=== PATIENT | female | born 1990 | race Caucasian/White ===

== ENCOUNTER 2018-11-06 12:40 | Outpatient (CLI) | payer OTHER ==
[~2018-11-06] VITALS: Ht 167.6 cm; Wt 113.9 kg
[2018-11-06 13:13] VITALS: BP 126/75; PULSE 80; RESP 18; Ht 167.6 cm; Wt 113.9 kg
[2018-11-06] MEDS ORDERED: LACTATED RINGER'S 1,000 ML IV SCH (13:14)
[2018-11-06] MEDS ORDERED: ALBU8.5H8 INH (13:15)
--- NOTE | 2018-11-06 16:33 | TRIAGE ---
OB Triage Datetime Report Generated by CPN: 11/06/2018 16:33 Datetime: 11/06/2018 16:21 Labor Evaluation Frequency: x1 Monitor Mode: External Duration (sec)2399: 60 Quality: Mild Pattern: Normal: <= 5 Contractions in 10 Minutes Resting Tone Blue: Relaxed Contraction Comments: uc with irritability Heart Rate FHR Baseline Rate: 135 Monitor Mode: External US Variability: Moderate 6-25 bpm Accelerations: 15X15 Decelerations: None Category: Category I Datetime: 11/06/2018 16:00 Labor Evaluation Frequency: x2 Monitor Mode: External Duration (sec)2399: 60-100 Quality: Mild Pattern: Normal: <= 5 Contractions in 10 Minutes Resting Tone Blue: Relaxed Contraction Comments: uc with irriabilty Heart Rate FHR Baseline Rate: 135 Monitor Mode: External US Variability: Moderate 6-25 bpm Accelerations: 15X15 Decelerations: None Category: Category I Pain Assessment Pain Presence: None/Denies Pain Type: N/A Datetime: 11/06/2018 15:01 Duration (sec)2399: 20-40 Quality: Mild Pattern: Normal: <= 5 Contractions in 10 Minutes Resting Tone Blue: Relaxed Heart Rate FHR Baseline Rate: 135 Variability: Moderate 6-25 bpm Accelerations: 15X15 Decelerations: None Category: Category I Pain Assessment Pain Presence: None/Denies Pain Type: N/A Datetime: 11/06/2018 13:59 Labor Evaluation Frequency: x2 Monitor Mode: External Duration (sec)2399: 60-70 Quality: Mild Pattern: Normal: <= 5 Contractions in 10 Minutes Resting Tone Blue: Relaxed Contraction Comments: uc with irritability Heart Rate FHR Baseline Rate: 135 Monitor Mode: External US Variability: Moderate 6-25 bpm Accelerations: 15X15 Decelerations: None Category: Category I Pain Assessment Pain Presence: None/Denies Pain Type: N/A Datetime: 11/06/2018 13:20 Assessment Type: Triage Maternal Assessment Level of Consciousness: Fully Conscious DTR's/Clonus: DTRs 2+; No Clonus Headache: Denies Blurred Vision: No Respiratory Effort: Unlabored; Regular Rhythm; Equal Expansion Breath Sounds, Left: Clear and Equal Breath Sounds, Right: Clear and Equal Nausea/Vomiting: Denies RUQ Epigastric Pain: Denies Lower Extremities Edema: None Degree: None Upper Extremities Edema: None Facial Edema: None Fall Risk Assessment History of Falling: (0) No Secondary Diagnosis: (0) No Ambulatory Aid: (0) Bedrest/Nurse Assist IV Therapy: (0) No Gait: (0) Normal/Bedrest/Immobile Mental Status: (0) Oriented to Own Ability Fall Score: 0 Fall Risk Score Definition: No Risk: No action required Datetime: 11/06/2018 13:19 Time of Arrival: 11/06/2018 12:45 EGA: 35.5 Arrived By: Ambulatory Arrived From: Other Unit in Hospital Chief Complaint: PT. to ob triage from nst for extended monitoring due to mild uc Movement: Present Contractions: Denies/Absent Patient Complaints: Other Initial Plan: r/o ptl
--- NOTE | 2018-11-16 07:27 | PN ---
Triage Information Date/Time late entry for service rendered on 11/06/18 Reason for visit: Uterine contractions Weeks of Gestation 35w5d /Para Additional information twin gestation Objective Heart Rate: 130's (from NST for extended monitoring for uc's) Heart Rate Comments CAT I Contractions: < 5 Minutes Apart Results/Medications Medications IV hydration and x2 terbutaline Disposition: Discharge Assessment/Plan A IUP 35w5d twin gestation no ptl P discharge home with routine labor instructions RTH prn STELLA CORONA MD Nov 16, 2018 07:27
== END 2018-11-06 16:40 | disposition home or self-care (01) ==
LOC: L-D 12:40 → OBT 12:40
PROVIDERS: ATTEND Specialist
DX: O62.9 Abnormality of forces of labor, unspecified (principal); Z3A.35 35 weeks gestation of pregnancy
CPT/HCPCS: 36415; 80307; 81003; 85025; 85610; 85730; 86592; 86850; 86900; 86901; 87340; 96360; 96361; J7120; Z7500; G0463

== ENCOUNTER 2018-11-18 01:45 | Inpatient (IN) | payer OTHER ==
[~2018-11-18] VITALS: Ht 170.2 cm; Wt 116.4 kg
[~2018-11-18 01:45] MED LIST: ALBU8.5H8 INH
[2018-11-18 02:24] VITALS: BP 128/77; PULSE 71; RESP 17; Ht 170.2 cm; Wt 116.4 kg
[2018-11-18] MEDS ORDERED: CARBOPROST 250 MCG INJ IM PRN ×2 (02:30→16:30)
[2018-11-18] MEDS ORDERED: CEFAZOLIN 2 GM/50 ML (PMX) 50 ML IVPB SCH (02:30)
[2018-11-18] MEDS ORDERED: OXYTOCIN 30 UNITS/LR 500 ML IV SCH ×2 (02:30→16:08)
[2018-11-18] MEDS ORDERED: MISOPROSTOL 200 MCG TAB PR PRN ×2 (02:30→16:30)
[2018-11-18] MEDS ORDERED: OXYTOCIN 30 UNITS/LR 500 ML IV PRN ×2 (02:30→16:30)
[2018-11-18] MEDS: LACTATED RINGER'S 1,000 ML IV SCH ×2 (02:43→10:24)
[2018-11-18] MEDS ORDERED: AMPICILLIN 2 GM/NS (PMX) 100 ML ONE (02:47)
--- NOTE | 2018-11-18 02:50 | HP ---
Date/Time of Note Date/Time of Note DATE: 11/18/18 TIME: 02:48 OB - History Hx of Present Chief Complaint: leakage of fluid Estimated Due Date: Dec 06, 2018 : 2 Para: 1 Spontaneous : 0 Therapeutic : 0 Care: Good Care Ultrasounds: Normal mid trimester US Obstetrical Complications: Other (twins) Medical Complications: None Past Family/Social History * Past Medical, Surgical, Family and Obstetric Histories reviewed from chart. OB Admission Exam Vital Signs Vital Signs Vital Signs Date Temp Pulse Resp B/P (MAP) Pulse Ox O2 O2 Flow FiO2 Time Delivery Rate 11/18/18 98.3 71 17 128/77 Room Air 02:24 (94) Physical Exam HEENT: WNL Heart: Rhythm Normal Lungs: Clear, Equal Abdomen: WNL Extremities: Normal Reflexes: Normal Cervical Dilatation: Fingertip Effacement: 75% Station: -1 Membranes: Ruptured Amniotic Fluid: Clear Heart Rate: 130's Accelerations: Accelerations Present Decelerations: No Decelerations Varibility: Moderate Contractions on Admission: < 5 Minutes Apart OB Assessment/Plan Reason for admission: rupture of membranes, other Other Assessment: Twins Plan: Section JOVON PEÑALOZA MD Nov 18, 2018 02:50
[2018-11-18] MEDS ORDERED: AMPICILLIN 2 GM/NS (PMX) 100 ML IVPB ONE (03:00)
[2018-11-18] MEDS ORDERED: ONDANSETRON 4 MG INJ IV ONE (03:22)
[2018-11-18] MEDS ORDERED: METOCLOPRAMIDE 10 MG INJ IV STA (03:28)
[2018-11-18] MEDS ORDERED: AZITHROMYCIN 500MG/NS (PMX) 250 ML IVPB ONE (03:30)
[2018-11-18] MEDS ORDERED: METOCLOPRAMIDE 10 MG INJ IM ONE (03:30)
--- NOTE | 2018-11-18 03:47 | PREAC ---
Date/Time of Note Date/Time of Note DATE: 11/18/18 TIME: 03:46 Anesthesia Eval and Record Evaluation Time Pre-Procedure Interview DATE: 11/18/18 TIME: 03:46 Age 28 Sex female NPO: 8 hrs Preoperative diagnosis twins gestation Planned procedure c/s Past Medical History Past Medical History: Includes GI: Obesity Surgery & Anesthesia Issues No known issue Meds Anticoagulation: No Beta Norma within 24 hr: No Reason Beta Norma not given: Pt. not on B-Norma Reported Medications Albuterol Sulfate* (Proair HFA*) 8.5 Gm Hfa.aer.ad, 2 PUFF INH Q4, #1 INHALER 11/06/18 Current Medications Lactated Ringer's 1,000 ml @ 125 mls/hr Q8H IV Last administered on 11/18/18at 02:43; Admin Dose 125 MLS/HR; Start 11/18/18 at 02:22 Oxytocin/Lactated Ringer's 500 ml @ 125 mls/hr POST IV ; Start 11/18/18 at 02:30 Oxytocin/Lactated Ringer's 500 ml @ 0 mls/hr ONCE PRN IV .VAGINAL BLEEDING; Start 11/18/18 at 02:30 Carboprost Tromethamine (Hemabate) 250 mcg ONCE PRN IM .VAGINAL BLEEDING; Start 11/18/18 at 02:30 Misoprostol (Cytotec) 1,[address] .VAGINAL BLEEDING; Start 11/18/18 at 02:30 Ampicillin 100 ml @ 100 mls/hr ONCE ONCE IVPB Last administered on 11/18/18at 03:00; Admin Dose 100 MLS/HR; Start 11/18/18 at 03:00; Stop 11/18/18 at 03:59 Azithromycin 250 ml @ 250 mls/hr ONCE ONCE IVPB Last administered on 11/18/18at 03:23; Admin Dose 250 MLS/HR; Start 11/18/18 at 03:30; Stop 11/18/18 at 04:29 Meds reviewed: Yes Allergies Coded Allergies: levofloxacin (Verified Allergy, Intermediate, hives, 11/06/18) No Known Allergies (Verified Allergy, Unknown, 12/26/07) Allergies Reviewed: Yes Labs/Studies Labs Reviewed: Reviewed by anesthesiologist Result Diagram: 11/18/18 0230 Laboratory Tests 11/18/18 02:30 test: Positive Pre-procedure Exam Last vitals Vital Signs Date Temp Pulse Resp B/P (MAP) Pulse Ox O2 O2 Flow FiO2 Time Delivery Rate 11/18/18 98.3 71 17 128/77 Room Air 02:24 (94) Airway: Adequate mouth opening, Adequate thyromental dist Mallampati: Mallampati II Teeth: Normal Lung: Normal Heart: Normal ASA Physical Status ASA physical status: 2 Emergency: None Planned Anesthetic Neuraxial: Spinal Planned Pain Management Sub-arachniod narcotics Pre-operative Attestations Prior to commencing anesthesia and surgery, the patient was re-evaluated, there was verification of: *The patient's identity *The results of appropriate recent lab work and preoperative vital signs *The above evaluation not changing prior to induction *Anesthetic plan, risk benefits, alternative and complications discussed with patient/family; questions answered; patient/family understands, accepts and wishes to proceed. GEORGE NAVA Nov 18, 2018 03:47
[2018-11-18] MEDS ORDERED: morphine SULFATE/PF (10 MG/10 ML) INJ ONE (03:54)
[2018-11-18] MEDS ORDERED: KETOROLAC 30 MG INJ IV PRN (04:30)
[2018-11-18] MEDS ORDERED: HYDROmorphONE 1 MG/5 ML IV SYRINGE IV PRN ×3 (04:30)
[2018-11-18] MEDS ORDERED: METOCLOPRAMIDE 10 MG INJ IV PRN (04:30)
[2018-11-18] MEDS ORDERED: HYDROmorphONE 0.5 MG/0.5 ML SYG IV PRN (04:30)
[2018-11-18] MEDS ORDERED: DIPHENHYDRAMINE 50 MG INJ IV PRN ×2 (04:30)
[2018-11-18] MEDS ORDERED: ONDANSETRON 4 MG INJ IV PRN ×2 (04:30)
[2018-11-18] MEDS ORDERED: NALOXONE (0.4 MG/ML) INJ IV PRN (04:30)
[2018-11-18] MEDS ORDERED: ALBUTEROL 0.083% (NEB) 2.5 MG/3 ML AMP HHN PRN (04:30)
[2018-11-18] MEDS ORDERED: FENTAnyl 50 MCG/ML VIAL IV PRN ×3 (04:30)
--- NOTE | 2018-11-18 05:13 | OPPN ---
Date/Time of Note Date/Time of Note DATE: 11/18/18 TIME: 05:11 Operative Report Planned Procedure Procedure date Nov 18, 2018 Procedure(s) Repeat Performed by Jovon Peñaloza MD Hand Clerical Verifier: STELLA CORONA MD 2nd Hand Clerical Verifier none Anesthesiologist: GEORGE NAVA Pre-procedure diagnosis Twins, previous , SROM [id number] Anesthesia Type: [id number] spinal Post-Procedure Post-procedure diagnosis Same Findings Twin A 02/22, Twin B 01/22 Estimated Blood Loss: other (700 ml) Specimen(s) Placenta Grafts/Implant(s) none Complication(s) none JOVON PEÑALOZA MD Nov 18, 2018 05:13
--- NOTE | 2018-11-18 05:38 | OPR ---
DATE OF OPERATION: 11/18/2018 PREOPERATIVE DIAGNOSES: at 37 weeks with twins, previous section, spontaneous rup ture of membranes. POSTOPERATIVE DIAGNOSES: at 37 weeks with twins, previous section, spontaneous ru pture of membranes. OPERATION: Repeat low transverse section. SURGEON: Jovon De La Torre MD BARK PRESS OPERATOR: Chichi Guzmán MD ANESTHESIA: Spinal. ANESTHESIOLOGIST: Trent Brandt MD PROCEDURE IN DETAILS: The patient was taken to operating room and placed on the operating table. Af ter successful spinal anesthesia was given, the patient was placed in supine position. The area was prepared and draped in the usual sterile fashion. Spinal anesthesia was tested and was satisfactory. Using a scalpel, Pfannenstiel incision was made about 2 fingerbreadths above the symphysis pubis. Incision was carried down to the fascia. The fascia was incised and with Bovie. Two Koche r's were used to separate the fascia from the muscle. Muscle was dissected down to peritoneum. The peritoneum was secured with 2 Kellys and incised with Metzenbaum scissors. Using a scalpel, a small transverse incision was made on the lower segment of uterus. Upon entering the uterine cavity, jaramillo ge were inserted to extend the incision bilaterally and curved up. Twin A baby boy was delivered fro m right sacral anterior position. After suctioning clear of amniotic fluid, the baby was handed off to the team in attendance. Apgars were 9 and 9. Twin B baby girl was delivered from cephal ic presentation. After suctioning clear fluid, the baby was handed off to the team in atten dance. Apgars were 8 and 9. The placenta was delivered without difficulty. Uterus was closed with #1 Monocryl continuous locked. After assuring hemostasis, both ovaries and tubes were inspected, all looked normal. Peritoneal cavity was irrigated with warm saline. The peritoneum was closed with 2- 0 Vicryl continuous. The fascia was closed with #1 Vicryl continuous in 2 segments. Subcutaneous ti ssue was reapproximated with 2-0 plain. The skin was closed with fly. ESTIMATED BLOOD LOSS: 700 mL. COUNTS: All counts were correct. Dictated By: JOVON DE LA TORRE MD GD/NTS Conf#: [id number] DID#: [id number] CC: HEAVEN HERNANDEZ MD;*[facility]*
[2018-11-18] MEDS: KETOROLAC 30 MG INJ IV PRN ×3 (05:51→21:57)
[2018-11-18] MEDS: HYDROmorphONE 0.5 MG/0.5 ML SYG IV PRN ×2 (06:42→10:19)
[2018-11-18 08:00] VITALS: BP 108/65; PULSE 86; RESP 20
--- NOTE | 2018-11-18 08:34 | PAC ---
Date/Time of Note Date/Time of Note DATE: 11/18/18 TIME: 08:34 Post-Anesthesia Notes Post-Anesthesia Note Last documented vital signs Vital Signs Date Temp Pulse Resp B/P (MAP) Pulse Ox O2 O2 Flow FiO2 Time Delivery Rate 11/18/18 98.3 71 17 128/77 Room Air 02:24 (94) Activity: WNL Respiratory function: WNL Cardiovascular function: WNL Mental status: Baseline Pain reasonably controlled: Yes Hydration appropriate: Yes Nausea/Vomiting absent: Yes GEORGE NAVA Nov 18, 2018 08:34
[2018-11-18 14:35] VITALS: BP 117/70; PULSE 68; RESP 18
[2018-11-18] MEDS ORDERED: EPHEDrine 25 MG/5 ML SYG IV ONE (15:37)
[2018-11-18] MEDS ORDERED: PHENYLephrine (100 MCG/ML) 10ML SYG IV ONE (15:37)
[2018-11-18] MEDS ORDERED: LACTATED RINGER'S 1,000 ML IV SCH (16:08)
[2018-11-18] MEDS ORDERED: OXYCODONE/ACETAMINOPHEN (5/325) TAB PO PRN (16:30)
[2018-11-18] MEDS ORDERED: METHYLERGONOVINE 0.2 MG INJ IM PRN (16:30)
[2018-11-18] MEDS ORDERED: LANOLIN HPA 1 PKT TOP PRN (16:30)
[2018-11-18 20:20] VITALS: BP 106/67; PULSE 77; RESP 16
[2018-11-18] MEDS: SENNA/DOCUSATE NA (8.6MG/50MG) TAB PO SCH (21:00)
[2018-11-19 00:38] VITALS: BP 103/69; PULSE 72; RESP 17
[2018-11-19 04:30] VITALS: BP 100/56; PULSE 86; RESP 20
[2018-11-19] MEDS: IBUPROFEN 800 MG TAB PO SCH ×3 (05:33→21:41)
[2018-11-19] MEDS: OXYCODONE/ACETAMINOPHEN (5/325) TAB PO PRN ×4 (05:34→21:42)
--- NOTE | 2018-11-19 07:58 | QN ---
Documentation Comment s/p c/s Subjective: no complaint Objective: Afebrile, VSS NAD A&O Abdomen: soft, appropriate tender Incision: no sign of bleeding/infection mild lochia Extremity: 1+ edema bilaterally Assessment: S/p C/S POD # 1. Twins Recovering Well Plan: current care HEAVEN HERNANDEZ MD Nov 19, 2018 07:58
[2018-11-19 09:00] VITALS: BP 90/56; PULSE 77; RESP 16
[2018-11-19] MEDS: SENNA/DOCUSATE NA (8.6MG/50MG) TAB PO SCH ×2 (10:03→21:47)
[2018-11-19 16:10] VITALS: BP 93/44; PULSE 89; RESP 16
[2018-11-19 19:07] VITALS: BP 125/85; RESP 16
[2018-11-19 20:40] VITALS: BP 106/56; PULSE 84; RESP 18
[2018-11-19] MEDS: ALBUTEROL HFA 8 GM INHALER INH PRN (21:42)
[2018-11-20] MEDS: OXYCODONE/ACETAMINOPHEN (5/325) TAB PO PRN ×3 (03:21→16:29)
[2018-11-20 04:00] VITALS: BP 106/57; PULSE 85; RESP 18
[2018-11-20] MEDS: IBUPROFEN 800 MG TAB PO SCH ×3 (07:01→22:21)
[2018-11-20 08:40] VITALS: BP 108/58; PULSE 74; RESP 18
[2018-11-20] MEDS: SENNA/DOCUSATE NA (8.6MG/50MG) TAB PO SCH ×2 (09:10→22:21)
[2018-11-20 16:00] VITALS: BP 118/79; PULSE 68; RESP 18
--- NOTE | 2018-11-20 17:04 | QN ---
Documentation Comment s/p c/s Subjective: no complaint Objective: Afebrile, VSS NAD A&O Abdomen: soft, appropriate tender Incision: no sign of bleeding/infection mild lochia Extremity: 1+ edema bilaterally Assessment: S/p C/S POD # 2 for twins Recovering Well Plan: current care HEAVEN HERNANDEZ MD Nov 20, 2018 17:03
[2018-11-20 20:30] VITALS: BP 120/65; PULSE 69; RESP 19
[2018-11-21] MEDS: OXYCODONE/ACETAMINOPHEN (5/325) TAB PO PRN ×2 (03:54→12:50)
[2018-11-21 04:00] VITALS: BP 109/56; PULSE 76; RESP 19
[2018-11-21] MEDS: IBUPROFEN 800 MG TAB PO SCH ×2 (06:00→09:29)
[2018-11-21 08:00] VITALS: BP 121/56; PULSE 64; RESP 20
[2018-11-21] MEDS ORDERED: DIPHTH/TET/ACEL PERTUSS (ADULT) 0.5 ML VIAL IM* ONE (09:00)
[2018-11-21] MEDS: SENNA/DOCUSATE NA (8.6MG/50MG) TAB PO SCH (09:29)
[2018-11-21] MEDS: ALBUTEROL HFA 8 GM INHALER INH PRN (14:58)
[2018-11-21 16:00] VITALS: BP 116/68; PULSE 76; RESP 18
--- NOTE | 2018-11-21 21:13 | DS ---
Date/Time of Note Date/Time of Note DATE: 11/21/18 TIME: 21:13 Obstetrical Discharge Record Final Diagnosis Final Diagnosis: Term delivered Other Final Diagnosis Hematology - 72 Hrs Test 11/19/18 07:45 Hematocrit 30.0 % (37.0-47.0) L Hemoglobin 10.0 g/dl (12.0-16.0) #L Mean Corpuscular Hemoglobin 28.9 pg (29.0-33.0) L Mean Corpuscular Hemoglobin Concent 33.3 g/dl (32.0-37.0) Mean Corpuscular Volume 86.7 fl (82.0-101.0) Mean Platelet Volume 10.5 fl (7.4-10.4) H Platelet Count 147 10^3/UL (140-415) # Red Blood Count 3.46 10^6/ul (4.20-5.40) #L Red Cell Distribution Width 13.6 % (11.5-14.5) White Blood Count 7.2 10^3/ul (4.8-10.8) Postop day #3 Status post repeat Patient stable and afebrile Patient is ambulating, tolerating regular diet, voiding and positive flatus Vital signs stable Abdomen soft, fundus firm Incision clean, dry, intact Extremities nontender Assessment and plan Patient stable and doing well Plan to discharge home Patient was given instruction for staple removal to be done on Friday, November 23, 2018 Patient instructed to follow-up with OCCUPATIONAL HEALTH NURSE MANAGER in 2 and 6 weeks Section Section: Repeat (twins) Condition on Discharge Physical Assessment Last Vitals: VS - Last 72 Hours, by Label Date Temp Pulse Resp B/P (MAP) Pulse Ox O2 O2 Flow FiO2 Time Delivery Rate 11/21/18 98.5 76 18 116/68 16:00 (84) 11/21/18 98.1 64 20 121/56 08:00 (77) 11/21/18 98.3 76 19 109/56 Room Air 04:00 (73) 11/20/18 98.2 69 19 120/65 Room Air 20:30 (83) 11/20/18 98.2 68 18 118/79 Room Air 16:00 (92) 11/20/18 98.2 74 18 108/58 Room Air 08:40 (75) 11/20/18 98.1 85 18 106/57 Room Air 04:00 (73) 11/19/18 98.2 84 18 106/56 Room Air 20:40 (73) 11/19/18 16 125/85 98 Room Air 19:07 (98) 11/19/18 98.4 89 16 93/44 (60) 16:10 11/19/18 98.2 77 16 90/56 (67) Room Air 09:00 11/19/18 98.1 86 20 100/56 04:30 (71) 11/19/18 98.8 72 17 103/69 96 00:38 (80) Voiding: Yes Bowel Movement: Yes Breast: Soft, non-tender Fundus: Firm Calf Tenderness: No Patient Condition: Good Copies To: CC: HEAVEN HERNANDEZ MD ; MAULIK BIRD MD Nov 21, 2018 21:13
--- NOTE | 2018-11-22 18:41 | DELSUM ---
Delivery Summary A-C Datetime Report Generated by CPN: 11/22/2018 18:41 DELIVERY PERSONNEL Kitchen Helper: Carie Johnson MATERNAL INFORMATION Delivery Anesthesia: Spinal Medications in Delivery: see anesthesia notes Delivery QBL (ml): 700 Placenta Cultured: No Maternal Complications: None LABOR SUMMARY EDC: 12/06/2018 00:00 No. Babies in Womb: 2 Attempted: No Labor Anesthesia: None LABOR INFORMATION Reason for Induction: Not Applicable Onset of Labor: 11/18/2018 00:50 Oxytocin: N/A Group B Beta Strep: Not Done Antibiotics # of Doses: 2 Antibiotics Time of Last Dose: 11/18/2018 03:23 Steroids Given: None Reason Steroids Not Administered: Not Applicable MEMBRANES Membranes Rupture Method: Spontaneous Rupture of Membranes: 11/18/2018 00:00 Length of Rupture (hr): 4.57 Amniotic Fluid Color: Clear Amniotic Fluid Amount: Moderate Amniotic Fluid Odor: Normal STAGES OF LABOR Stage 3 hr: 0 Stage 3 min: 3 Total Time in Labor hr: 3 Total Time in Labor min: 47 CSECTION DELIVERY Primary Indication: Repeat Elective Secondary Indication: Multiple Gestation CSection Urgency: Elective CSection Incidence: Repeat Labor: Labor Elective: Elective CSection Incision: Lower Uterine Transverse BABY A INFORMATION Delivery Date/Time: 11/18/2018 04:34 Method of Delivery: Born in Route : No : N/A Forceps: N/A Vacuum Extraction: N/A Shoulder Dystocia : No SHOULDER DYSTOCIA BABY A Delivery Date/Time: 11/18/2018 04:34 PRESENTATION/POSITION BABY A Presentation: Cephalic Cephalic Presentation: Vertex Breech Presentation: N/A PLACENTA INFORMATION BABY A Placenta Delivery Time : 11/18/2018 04:37 Placenta Method of Delivery: Manual Removal Placenta Status: Delivered SCORES BABY A Heart Rate 1 min: >100 bpm Resp Effort 1 min: Good Cry Reflex Irritability 1 min: Cough/Sneeze/Pulls Away Muscle Tone 1 min: Active Motion Color 1 min: Body [place], Extremit Blue Resuscitation Effort 1 min: Tactile Stimulation SCORE 1 MIN: 9 Heart Rate 5 min: >100 bpm Resp Effort 5 min: Good Cry Reflex Irritability 5 min: Cough/Sneeze/Pulls Away Muscle Tone 5 min: Active Motion Color 5 min: Body [place], Extremit Blue Resuscitation Effort 5 min: N/A SCORE 5 MIN: 9 INFANT INFORMATION BABY A Gestational Age at Delivery: 37.3 Gestational Status: Early Term- 37- 38.6 Weeks Infant Outcome : Liveborn Infant Condition : Stable Sex: Male IDENTIFICATION/MEDS BABY A ID Band Number: [id number] ID Band Location: Right Leg; Left Arm Sensor Applied: Yes Sensor Number: [id number] Sensor Location : Cord Clamp Vitamin K Given : Not Given Erythromycin Given: Not Given WEIGHT/LENGTH BABY A Infant Birthweight (gm): 2110 Weight (lb): 4 Weight (oz): 10 Length (in): 18.00 Infant Length (cm): 45.72 CORD INFORMATION BABY A No. Cord Vessels: 3 Nuchal Cord : N/A Cord Blood Taken: Yes Infant Suction: Mouth; Nose ASSESSMENT BABY A Complications: None Physical Findings at Delivery: Within Normal Limits Infant Respirations: Appears Normal Cook Cashier Food Prep/ALS Called : Yes Infant Care By: Vijay Grace RN Transferred To: Remains with Mother BABY B INFORMATION Infant Delivery Date/Time: 11/18/2018 04:36 Method of Delivery : Born in Route : No : N/A Forceps : N/A Vacuum Extraction: N/A Shoulder Dystocia : No SHOULDER DYSTOCIA BABY B Delivery Date/Time: 11/18/2018 04:36 PRESENTATION/POSITION BABY B Presentation : Cephalic Cephalic Position : Vertex Breech Position: N/A ROM/PLACENTA INFO BABY B Rupture of Membranes: 11/18/2018 04:35 Length of Rupture (hr): 0.02 Placenta Delivery Time : 11/18/2018 04:37 Placenta Method of Delivery: Manual Removal Placental Status : Delivered SCORES BABY B Heart Rate 1 min: >100 bpm Resp Effort 1 min: Good Cry Reflex Irritability 1 min: Cough/Sneeze/Pulls Away Muscle Tone 1 min: Active Motion Color 1 min: Blue/Pale Resuscitation Effort 1 min: Tactile Stimulation SCORE 1 MIN: 8 Heart Rate 5 min: >100 bpm Resp Effort 5 min: Good Cry Reflex Irritability 5 min: Cough/Sneeze/Pulls Away Muscle Tone 5 min: Active Motion Color 5 min: Body [place], Extremit Blue Resuscitation Effort 5 min: N/A SCORE 5 MIN: 9 INFANT INFORMATION BABY B Gestational Age at Delivery: 37.3 Gestational Status : Early Term- 37- 38.6 Weeks Outcome : Liveborn Infant Condition : Stable Infant Sex : Female IDENTIFICATION/MEDS BABY B ID Band Number : [id number] ID Band Location : Right Leg; Left Arm Sensor Applied: Yes Sensor Number : [id number] Sensor Location : Cord Clamp Vitamin K Given : Not Given Erythromycin Given : Not Given WEIGHT/LENGTH BABY B Birthweight (gm): 2630 Weight (lb) : 5 Infant Weight (oz): 13 Length (in): 17.75 Length (cm): 45.09 CORD INFORMATION BABY B No. Cord Vessels : 3 Nuchal Cord : N/A Cord Blood Taken : Yes Infant Suction : Mouth; Nose ASSESSMENT BABY B Infant Complications : None Physical Findings at Delivery: Within Normal Limits Infant Respirations : Appears Normal Cook Cashier Food Prep/ALS Called : Yes Care By : Tono Lujan RN and Tono Márquez RT Transfer To: Remains with Mother
--- NOTE | 2018-11-24 11:36 | CONS ---
Consultation Date/Type/Reason Admit Date/Time Nov 18, 2018 at 02:10 Initial Consult Date Type of Consult anesthesia Reason for Consultation follow up Date/Time of Note DATE: 11/24/18 TIME: 11:35 24 HR Interval Summary Free Text/Dictation Pt was seen and examined at bedside on 11/18/18 was POD#1 s/p repeat c/s. Pt received spinal duramorph for post-op pain control. She had no N/V/WATSON. Exam/Review of Systems Exam Vitals Vital Signs Date Temp Pulse Resp B/P (MAP) Pulse Ox O2 O2 Flow FiO2 Time Delivery Rate 11/21/18 98.5 76 18 116/68 16:00 (84) 11/21/18 Room Air 04:00 GEORGE NAVA Nov 24, 2018 11:36
== END 2018-11-21 18:40 | disposition home or self-care (01) | DRG 788 ==
LOC: L-D 01:45 → OBT 01:45 → L-D 02:10 → PP1 14:25
PROVIDERS: ADMIT Specialist; ATTEND Specialist
PROC: 10D00Z1 Extraction of Products of Conception, Low, Open Approach (ICD-10-PCS; principal; 2018-11-18 03:00)
DX: O30.003 Twin pregnancy, unspecified number of placenta and unspecified number of amniotic sacs, third trimester (principal); Z3A.37 37 weeks gestation of pregnancy; Z37.2 Twins, both liveborn
CPT/HCPCS: 80307; 85025; 85610; 85730; 86592; 86850; 86900; 86901; 87340; 88307; 99464; G0463; J0290; J0456; J0690; J1170; J1885; J2274; J2370; J2405; J2590; J2765; J7120